=== PATIENT | male | born 1975 | race Caucasian/White ===

== ENCOUNTER 2017-04-05 22:00 | Emergency (ER) | payer MEDICAID ==
[~2017-04-05] VITALS: Ht 170.2 cm; Wt 113.6 kg
[~2017-04-05 22:00] MED LIST: BENZ1TAB10 PO; DIVA500T52 PO; METF500T4 PO; OLAN5TAB2 PO; RISP3 PO
[2017-04-05] MEDS ORDERED: AMLO-511 PO (22:10)
[2017-04-05 22:17] LABS: GLUCOSE,POINT OF CARE 95 MG/DL (70-110)
[2017-04-05 22:29] LABS: BASOPHILS % (AUTO) 0.5 % (0.0-2.0); EOSINOPHILS % (AUTO) 0.8 % (1.0-6.0); HEMATOCRIT 39.7 % (41-53); LYMPHOCYTES # (AUTO) 3.5 K/uL (1.0-4.8); LYMPHOCYTES % (AUTO) 36.4 % (22.0-44.0); MEAN CORPUSCULAR HEMOGLOBIN 33.7 pg (26.0-34.0); MEAN CORPUSCULAR HGB CONC 35.3 G/dL (31.0-37.0); MEAN CORPUSCULAR VOLUME 96 fL (80-100); MONOCYTES # (AUTO) 0.4 K/uL (0.1-1.0); MONOCYTES % (AUTO) 4.6 % (2.0-9.0); NEUTROPHILS # (AUTO) 5.6 K/uL (1.8-7.7); NEUTROPHILS % (AUTO) 57.7 % (40.0-70.0); PLATELET COUNT (AUTO) 298 K/uL (150-450); RED BLOOD CELL COUNT(AUTO) 4.15 MIL/uL (4.50-5.90); RED CELL DISTRIBUTION WIDTH 13.4 % (11.5-14.5); WHITE BLOOD COUNT (AUTO) 9.6 K/uL (4.5-11.0)
[2017-04-05 22:40] LABS: ANION GAP 8 mmol/L (8-16); CALCIUM, TOTAL 8.7 mg/dL (8.8-10.5); CARBON DIOXIDE 23 mmol/L (22-29); CHLORIDE 106 mmol/L (98-107); CREATININE 0.74 mg/dL (0.60-1.30); GLOMERULAR FILTR. RATE CALC > 60 mL/min (>60); POTASSIUM 3.5 mmol/L (3.5-5.1); SODIUM SERUM 137 mmol/L (136-145); UREA NITROGEN, BLOOD 6 mg/dL (7-18)
[2017-04-05 22:46] LABS: ALANINE AMINOTRANSFERASE 29 U/L (12-78); ALBUMIN 3.7 g/dL (3.4-5.0); ASPARTATE AMINOTRANSFERASE 18 U/L (15-37); BILIRUBIN,TOTAL 0.4 mg/dL (0.1-1.0); TOTAL PROTEIN, SERUM 6.8 g/dL (6.4-8.2)
[2017-04-05] MEDS ORDERED: LORazepam 2 MG TABLET PO ONE (23:00)
[2017-04-05] MEDS ORDERED: HALOPERIDOL 5 MG TABLET PO ONE (23:00)
[2017-04-05 23:20] VITALS: BP 132/85
== END 2017-04-05 23:23 | disposition home or self-care (01) ==
LOC: EMS 22:02
DX: R45.851 Suicidal ideations (principal); R44.0 Auditory hallucinations; E11.9 Type 2 diabetes mellitus without complications; F17.210 Nicotine dependence, cigarettes, uncomplicated; F20.9 Schizophrenia, unspecified; I10 Essential (primary) hypertension; K21.9 Gastro-esophageal reflux disease without esophagitis; F15.10 Other stimulant abuse, uncomplicated
CPT/HCPCS: 36415; 80053; 80307; 82962; 85025; 99285; 99406; G0480

== ENCOUNTER 2017-07-02 09:31 | Emergency (ER) | payer MEDICAID ==
[~2017-07-02] VITALS: Ht 170.2 cm; Wt 90.9 kg
[~2017-07-02 09:31] MED LIST changes: +AMLO-511 PO
[2017-07-02 09:42] LABS: GLUCOSE,POINT OF CARE 162 MG/DL (70-110)
[2017-07-02 10:27] LABS: BASOPHILS # (AUTO) 0.02 K/uL (0.00-0.20); BASOPHILS % (AUTO) 0.2 % (0.0-2.0); EOSINOPHILS # (AUTO) 0.07 K/uL (0.00-0.70); EOSINOPHILS % (AUTO) 0.77 % (1.0-6.0); HEMATOCRIT 40.6 % (41-53); HEMOGLOBIN 14.1 g/dL (13.5-17.5); LYMPHOCYTES # (AUTO) 2.9 K/uL (1.0-4.8); LYMPHOCYTES % (AUTO) 31.2 % (22.0-44.0); MEAN CORPUSCULAR HEMOGLOBIN 33.8 pg (26.0-34.0); MEAN CORPUSCULAR HGB CONC 34.6 G/dL (31.0-37.0); MEAN CORPUSCULAR VOLUME 98 fL (80-100); MONOCYTES # (AUTO) 0.5 K/uL (0.1-1.0); MONOCYTES % (AUTO) 5.6 % (2.0-9.0); NEUTROPHILS # (AUTO) 5.8 K/uL (1.8-7.7); NEUTROPHILS % (AUTO) 62.3 % (40.0-70.0); PLATELET COUNT (AUTO) 206 K/uL (150-450); RED BLOOD CELL COUNT(AUTO) 4.16 MIL/uL (4.50-5.90); RED CELL DISTRIBUTION WIDTH 12.5 % (11.5-14.5); WHITE BLOOD COUNT (AUTO) 9.3 K/uL (4.5-11.0)
[2017-07-02 10:38] LABS: ANION GAP 10 mmol/L (8-16); CALCIUM, TOTAL 8.3 mg/dL (8.8-10.5); CARBON DIOXIDE 23 mmol/L (22-29); CHLORIDE 98 mmol/L (98-107); CREATININE 0.72 mg/dL (0.60-1.30); GLOMERULAR FILTR. RATE CALC > 60 mL/min (>60); POTASSIUM 3.6 mmol/L (3.5-5.1); SODIUM SERUM 131 mmol/L (136-145); UREA NITROGEN, BLOOD 7 mg/dL (7-18)
[2017-07-02 10:44] LABS: ALANINE AMINOTRANSFERASE 22 U/L (12-78); ALBUMIN 3.5 g/dL (3.4-5.0); ASPARTATE AMINOTRANSFERASE 16 U/L (15-37); BILIRUBIN,TOTAL 0.4 mg/dL (0.1-1.0); TOTAL PROTEIN, SERUM 6.9 g/dL (6.4-8.2)
[2017-07-02] MEDS ORDERED: HALOPERIDOL 5 MG TABLET PO ONE (10:45)
[2017-07-02] MEDS ORDERED: LORazepam 1 MG TABLET PO ONE (10:45)
[2017-07-02 10:56] LABS: VALPROIC ACID 43 mcg/mL (50-100)
[2017-07-02 12:04] VITALS: BP 138/76
== END 2017-07-02 12:06 | disposition home or self-care (01) ==
LOC: EMS 09:33 → EEVIPCON 09:33 → EMS 12:06
DX: F20.0 Paranoid schizophrenia (principal); E11.9 Type 2 diabetes mellitus without complications; I10 Essential (primary) hypertension; K21.9 Gastro-esophageal reflux disease without esophagitis; F17.210 Nicotine dependence, cigarettes, uncomplicated; F19.90 Other psychoactive substance use, unspecified, uncomplicated; Z91.19 Patient's noncompliance with other medical treatment and regimen
CPT/HCPCS: 36415; 80053; 80164; 80307; 82962; 85025; 99284; G0480

== ENCOUNTER 2017-07-25 18:56 | Emergency (ER) | payer MEDICAID ==
[~2017-07-25] VITALS: Ht 177.8 cm; Wt 81.5 kg
[2017-07-25 19:13] LABS: GLUCOSE,POINT OF CARE 112 MG/DL (70-110)
[2017-07-25 19:37] LABS: BASOPHILS % (AUTO) 0.3 % (0.0-2.0); EOSINOPHILS % (AUTO) 1.3 % (1.0-6.0); HEMATOCRIT 41.2 % (41-53); HEMOGLOBIN 14.6 g/dL (13.5-17.5); LYMPHOCYTES # (AUTO) 4.5 K/uL (1.0-4.8); LYMPHOCYTES % (AUTO) 41.6 % (22.0-44.0); MEAN CORPUSCULAR HEMOGLOBIN 34.4 pg (26.0-34.0); MEAN CORPUSCULAR HGB CONC 35.4 G/dL (31.0-37.0); MEAN CORPUSCULAR VOLUME 97 fL (80-100); MONOCYTES # (AUTO) 0.6 K/uL (0.1-1.0); MONOCYTES % (AUTO) 5.1 % (2.0-9.0); NEUTROPHILS # (AUTO) 5.6 K/uL (1.8-7.7); NEUTROPHILS % (AUTO) 51.7 % (40.0-70.0); PLATELET COUNT (AUTO) 256 K/uL (150-450); RED BLOOD CELL COUNT(AUTO) 4.25 MIL/uL (4.50-5.90); RED CELL DISTRIBUTION WIDTH 12.8 % (11.5-14.5); WHITE BLOOD COUNT (AUTO) 10.8 K/uL (4.5-11.0)
[2017-07-25 19:45] VITALS: BP 122/74
[2017-07-25 19:55] LABS: ANION GAP 9 mmol/L (8-16); CALCIUM, TOTAL 8.9 mg/dL (8.8-10.5); CARBON DIOXIDE 26 mmol/L (22-29); CHLORIDE 101 mmol/L (98-107); CREATININE 0.69 mg/dL (0.60-1.30); GLOMERULAR FILTR. RATE CALC > 60 mL/min (>60); POTASSIUM 3.9 mmol/L (3.5-5.1); SODIUM SERUM 136 mmol/L (136-145); UREA NITROGEN, BLOOD 7 mg/dL (7-18)
[2017-07-25 20:01] LABS: ALANINE AMINOTRANSFERASE 26 U/L (12-78); ALBUMIN 3.8 g/dL (3.4-5.0); ASPARTATE AMINOTRANSFERASE 16 U/L (15-37); BILIRUBIN,TOTAL 0.3 mg/dL (0.1-1.0); TOTAL PROTEIN, SERUM 7.2 g/dL (6.4-8.2)
== END 2017-07-25 20:31 | disposition home or self-care (01) ==
LOC: EEVIPCON 18:59 → EMS 18:59
DX: F20.0 Paranoid schizophrenia (principal); I10 Essential (primary) hypertension; E11.9 Type 2 diabetes mellitus without complications; R79.9 Abnormal finding of blood chemistry, unspecified; F17.210 Nicotine dependence, cigarettes, uncomplicated; K21.9 Gastro-esophageal reflux disease without esophagitis; F19.90 Other psychoactive substance use, unspecified, uncomplicated; Z91.14 Patient's other noncompliance with medication regimen
CPT/HCPCS: 36415; 80053; 82962; 85025; 99284; 99406; G0480

== ENCOUNTER 2017-12-31 21:28 | Emergency (ER) | payer MEDICAID ==
[~2017-12-31] VITALS: Ht 170.2 cm; Wt 91.4 kg
[~2017-12-31 21:28] MED LIST changes: -METF500T4 PO
[2017-12-31] MEDS ORDERED: PALI156D IM (21:35)
[2017-12-31 21:42] LABS: GLUCOSE,POINT OF CARE 100 MG/DL (70-110)
[2017-12-31 23:21] VITALS: BP 125/75
== END 2017-12-31 23:23 | disposition home or self-care (01) ==
LOC: EMS 21:30
DX: R20.2 Paresthesia of skin (principal); E11.9 Type 2 diabetes mellitus without complications; K21.9 Gastro-esophageal reflux disease without esophagitis; I10 Essential (primary) hypertension; F17.210 Nicotine dependence, cigarettes, uncomplicated; F19.90 Other psychoactive substance use, unspecified, uncomplicated
CPT/HCPCS: 82962; 99283

== ENCOUNTER 2018-05-03 18:00 | Emergency (ER) | payer MEDICAID ==
[~2018-05-03] VITALS: Ht 170.2 cm; Wt 100.0 kg
[~2018-05-03 18:00] MED LIST changes: +PALI156D IM; -RISP3 PO
[2018-05-03 18:57] LABS: APPEARANCE,URINE CLEAR (CLEAR); BILIRUBIN,URINE NEGATIVE (NEGATIVE); GLUCOSE, URINE (UA) NEGATIVE (NEGATIVE); KETONES,URINE NEGATIVE (NEGATIVE); LEUKOCYTE ESTERASE ,URINE NEGATIVE (NEGATIVE); NITRATE,URINE NEGATIVE (NEGATIVE); OCCULT BLOOD,URINE NEGATIVE (NEGATIVE); PROTEIN,URINE NEGATIVE (NEGATIVE); UROBILINOGEN,URINE 0.2 mg/dL (<=1.0)
[2018-05-03] MEDS ORDERED: CEPHALEXIN MONOHYDRATE 500 MG CAPSULE PO ONE (19:15)
[2018-05-03] MEDS ORDERED: ACETAMINOPHEN 325 MG TABLET PO ONE (19:15)
[2018-05-03 19:31] VITALS: BP 131/85
[2018-05-03] MEDS ORDERED: BACITRACIN 0.9 GM PACKET OINTMENT TP SCH (21:00)
== END 2018-05-03 19:32 | disposition home or self-care (01) ==
LOC: EMS 18:01
DX: N48.89 Other specified disorders of penis (principal); N48.1 Balanitis; F25.9 Schizoaffective disorder, unspecified; F17.210 Nicotine dependence, cigarettes, uncomplicated; E11.9 Type 2 diabetes mellitus without complications; K21.9 Gastro-esophageal reflux disease without esophagitis; I10 Essential (primary) hypertension
CPT/HCPCS: 99284; 99406

== ENCOUNTER 2020-06-19 20:56 | Emergency (ER) | payer MEDICAID ==
[~2020-06-19] VITALS: Ht 172.7 cm; Wt 90.9 kg
[~2020-06-19 20:56] MED LIST changes: +AMLO-257 PO; -AMLO-511 PO; +DIVA-80 PO; -DIVA500T52 PO
[2020-06-19 22:02] LABS: BASOPHILS % (AUTO) 0.4 % (0.0-2.0); EOSINOPHILS % (AUTO) 1.1 % (1.0-6.0); HEMATOCRIT 41.7 % (41-53); HEMOGLOBIN 14.4 g/dL (13.5-17.5); LYMPHOCYTES # (AUTO) 4.1 K/uL (1.0-4.8); LYMPHOCYTES % (AUTO) 32.6 % (22.0-44.0); MEAN CORPUSCULAR HEMOGLOBIN 33.5 pg (26.0-34.0); MEAN CORPUSCULAR HGB CONC 34.5 G/dL (31.0-37.0); MEAN CORPUSCULAR VOLUME 97 fL (80-100); MONOCYTES # (AUTO) 0.9 K/uL (0.1-1.0); MONOCYTES % (AUTO) 7.6 % (2.0-9.0); NEUTROPHILS # (AUTO) 7.2 K/uL (1.8-7.7); NEUTROPHILS % (AUTO) 58.3 % (40.0-70.0); PLATELET COUNT (AUTO) 264 K/uL (150-450); RED BLOOD CELL COUNT(AUTO) 4.29 MIL/uL (4.50-5.90)
[2020-06-19 22:14] LABS: GLUCOSE,POINT OF CARE 93 MG/DL (70-110)
[2020-06-19 22:14] LABS: ANION GAP 8 mmol/L (8-16); CALCIUM, TOTAL 9.1 mg/dL (8.8-10.5); CARBON DIOXIDE 26 mmol/L (22-29); CHLORIDE 97 mmol/L (98-107); CREATININE 0.89 mg/dL (0.60-1.30); GLOMERULAR FILTR. RATE CALC > 60 mL/min (>60); GLUCOSE,RANDOM 102 mg/dL (70-110); POTASSIUM 3.4 mmol/L (3.5-5.1); SODIUM SERUM 131 mmol/L (136-145); UREA NITROGEN, BLOOD 6 mg/dL (7-18)
[2020-06-19 22:22] LABS: ALANINE AMINOTRANSFERASE 27 U/L (12-78); ALBUMIN 3.9 g/dL (3.4-5.0); ALKALINE PHOSPHATASE 70 U/L (46-116); ASPARTATE AMINOTRANSFERASE 18 U/L (15-37); BILIRUBIN,TOTAL 0.5 mg/dL (0.1-1.0); TOTAL PROTEIN, SERUM 7.2 g/dL (6.4-8.2); VALPROIC ACID 29 mcg/mL (50-100)
[2020-06-19 23:03] VITALS: BP 133/84
[2020-06-19] MEDS ORDERED: LORazepam 2 MG TABLET PO ONE (23:15)
== END 2020-06-19 23:32 | disposition home or self-care (01) ==
LOC: EMS 20:56
DX: F20.9 Schizophrenia, unspecified (principal); E11.9 Type 2 diabetes mellitus without complications; K21.9 Gastro-esophageal reflux disease without esophagitis; I10 Essential (primary) hypertension; F17.210 Nicotine dependence, cigarettes, uncomplicated; F19.90 Other psychoactive substance use, unspecified, uncomplicated
CPT/HCPCS: 36415; 80053; 80164; 82962; 85025; 99283; G0480

== ENCOUNTER 2021-01-06 20:00 | Emergency (ER) | payer MEDICAID ==
[~2021-01-06] VITALS: Ht 172.7 cm; Wt 90.0 kg
[2021-01-06 20:28] VITALS: BP 149/100
== END 2021-01-06 21:38 | disposition left against medical advice (07) ==
LOC: EMS 20:00
DX: M79.602 Pain in left arm (principal); Z53.21 Procedure and treatment not carried out due to patient leaving prior to being seen by health care provider

== ENCOUNTER 2021-03-05 16:53 | Emergency (ER) | payer MEDICAID ==
[~2021-03-05] VITALS: Ht 177.8 cm; Wt 100.0 kg
[~2021-03-05 16:53] MED LIST changes: -OLAN5TAB2 PO; +OLAN5TAB52 PO
[2021-03-05] MEDS ORDERED: IBUPROFEN 800 MG TABLET PO ONE (18:00)
[2021-03-05 18:52] VITALS: BP 133/75
== END 2021-03-05 19:07 | disposition home or self-care (01) ==
LOC: EMS 16:53
DX: S93.401A Sprain of unspecified ligament of right ankle, initial encounter (principal); E11.9 Type 2 diabetes mellitus without complications; I10 Essential (primary) hypertension; F20.9 Schizophrenia, unspecified; F17.210 Nicotine dependence, cigarettes, uncomplicated; F15.90 Other stimulant use, unspecified, uncomplicated; X50.9XXA Other and unspecified overexertion or strenuous movements or postures, initial encounter; Y93.89 Activity, other specified; Y92.89 Other specified places as the place of occurrence of the external cause; Y99.8 Other external cause status
CPT/HCPCS: 99284; 73610-TC; 73630-TC; Z7502; Z7610

== ENCOUNTER 2021-04-14 16:51 | Inpatient (IN) | payer MEDICAID ==
[~2021-04-14] VITALS: Ht 167.6 cm; Wt 104.3 kg
[2021-04-14] MEDS ORDERED: OLANZapine 5 MG RAPDIS TABLET PO ONE (18:30)
[2021-04-14] MEDS ORDERED: LORazepam 1 MG TABLET PO ONE (18:30)
[2021-04-14 18:33] LABS: BASOPHILS % (AUTO) 0.7 % (0.0-2.0); EOSINOPHILS % (AUTO) 1.6 % (1.0-6.0); HEMATOCRIT 41.8 % (41-53); HEMOGLOBIN 14.5 g/dL (13.5-17.5); LYMPHOCYTES # (AUTO) 5.1 K/uL (1.0-4.8); LYMPHOCYTES % (AUTO) 41.2 % (22.0-44.0); MEAN CORPUSCULAR HGB CONC 34.6 G/dL (31.0-37.0); MEAN CORPUSCULAR VOLUME 96 fL (80-100); MONOCYTES # (AUTO) 0.8 K/uL (0.1-1.0); MONOCYTES % (AUTO) 6.6 % (2.0-9.0); NEUTROPHILS # (AUTO) 6.2 K/uL (1.8-7.7); NEUTROPHILS % (AUTO) 49.9 % (40.0-70.0); PLATELET COUNT (AUTO) 326 K/uL (150-450); RED BLOOD CELL COUNT(AUTO) 4.38 MIL/uL (4.50-5.90); RED CELL DISTRIBUTION WIDTH 12.6 % (11.5-14.5)
[2021-04-14 18:35] LABS: AMPHET/METH SCREEN,URINE NEGATIVE (NEGATIVE); BARBITURATE SCREEN, URINE NEGATIVE (NEGATIVE); BENZODIAZEPINES SCREEN,URINE NEGATIVE (NEGATIVE); CANNABINOID SCREEN,URINE NEGATIVE (NEGATIVE); COCAINE SCREEN,URINE NEGATIVE (NEGATIVE); METHADONE SCREEN, URINE NEGATIVE (NEGATIVE); OPIATE SCREEN,URINE NEGATIVE (NEGATIVE)
[2021-04-14 18:50] LABS: PHENCYCLIDINE SCREEN,URINE NEGATIVE (NEGATIVE)
[2021-04-14 18:52] LABS: ANION GAP 11 mmol/L (8-16); CALCIUM, TOTAL 8.4 mg/dL (8.8-10.5); CARBON DIOXIDE 27 mmol/L (22-29); CHLORIDE 100 mmol/L (98-107); CREATININE 0.73 mg/dL (0.60-1.30); GLOMERULAR FILTR. RATE CALC > 60 mL/min (>60); GLUCOSE,RANDOM 138 mg/dL (70-110); POTASSIUM 4.1 mmol/L (3.5-5.1); SODIUM SERUM 138 mmol/L (136-145); UREA NITROGEN, BLOOD 11 mg/dL (7-18)
[2021-04-14 18:59] LABS: ALANINE AMINOTRANSFERASE 80 U/L (12-78); ALBUMIN 3.7 g/dL (3.4-5.0); ALKALINE PHOSPHATASE 100 U/L (46-116); ASPARTATE AMINOTRANSFERASE 28 U/L (15-37); BILIRUBIN,TOTAL 0.2 mg/dL (0.1-1.0); VALPROIC ACID 51 mcg/mL (50-100)
[2021-04-14 19:17] LABS: COVID AG,FIA SOURCE NASOPHARYNGEAL
[2021-04-14] MEDS ORDERED: QUEtiapine FUMARATE 100 MG TABLET PO PRN (19:30)
[2021-04-14] MEDS ORDERED: LORazepam 2 MG TABLET PO PRN (19:30)
[2021-04-14] MEDS ORDERED: ZOLPIDEM TARTRATE 10 MG TABLET PO PRN ×2 (19:30→20:45)
[2021-04-14] MEDS ORDERED: OLANZapine 5 MG RAPDIS TABLET PO PRN (20:45)
[2021-04-14 21:15] VITALS: BP 127/77
[2021-04-15] MEDS ORDERED: ACETAMINOPHEN 325 MG TABLET PO PRN (07:00)
[2021-04-15] MEDS ORDERED: CloNIDine HCL 0.1 MG TABLET PO PRN (07:00)
[2021-04-15] MEDS ORDERED: LOPERAMIDE HCL 2 MG CAPSULE PO PRN (07:00)
[2021-04-15] MEDS ORDERED: PETROLATUM,WHITE 28 GM JELLY TP PRN (07:00)
[2021-04-15] MEDS ORDERED: DOCUSATE SODIUM 100 MG CAPSULE PO PRN (07:00)
[2021-04-15] MEDS ORDERED: ALBUTEROL SULFATE HFA 90 MCG/PUFF 8 GM INHALER IH PRN (07:00)
[2021-04-15] MEDS ORDERED: OMEPRAZOLE 20 MG CAPSULE PO PRN (07:00)
[2021-04-15] MEDS ORDERED: MAG HYDROX/AL HYDROX/SIMETH ES 30 ML SUSPENSION UDCUP PO PRN (07:00)
[2021-04-15] MEDS ORDERED: BACITRACIN 28 GM OINTMENT TP PRN (07:00)
[2021-04-15] MEDS ORDERED: BENZOCAINE/MENTHOL LOZENGE PO PRN (07:00)
[2021-04-15] MEDS ORDERED: IBUPROFEN 600 MG TABLET PO PRN (07:00)
[2021-04-15] MEDS ORDERED: MAGNESIUM HYDROXIDE SUSPENSION 30 ML UDCUP PO PRN (07:00)
[2021-04-15] MEDS ORDERED: ONDANSETRON HCL 4 MG TABLET PO PRN (07:00)
[2021-04-15 08:12] VITALS: BP 143/87
[2021-04-15] MEDS: LORazepam 2 MG TABLET PO PRN ×2 (08:42→17:59)
[2021-04-15] MEDS: AmLODIPine BESYLATE 5 MG TABLET PO SCH (08:42)
[2021-04-15] MEDS: NICOTINE 21 MG/24 HOUR PATCH TD PRN (11:01)
[2021-04-15 16:00] VITALS: BP 138/91
[2021-04-15] MEDS: DIVALPROEX SODIUM 500 MG DR TABLET PO SCH (16:01)
[2021-04-16 07:11] LABS: HEMATOCRIT 43.6 % (41-53); HEMOGLOBIN 14.9 g/dL (13.5-17.5); MEAN CORPUSCULAR HEMOGLOBIN 32.6 pg (26.0-34.0); MEAN CORPUSCULAR HGB CONC 34.2 G/dL (31.0-37.0); MEAN CORPUSCULAR VOLUME 95 fL (80-100); PLATELET COUNT (AUTO) 297 K/uL (150-450); RED BLOOD CELL COUNT(AUTO) 4.57 MIL/uL (4.50-5.90); RED CELL DISTRIBUTION WIDTH 12.8 % (11.5-14.5)
[2021-04-16 07:27] LABS: ANION GAP 10 mmol/L (8-16); CALCIUM, TOTAL 8.6 mg/dL (8.8-10.5); CARBON DIOXIDE 27 mmol/L (22-29); CHLORIDE 103 mmol/L (98-107); CREATININE 0.71 mg/dL (0.60-1.30); GLOMERULAR FILTR. RATE CALC > 60 mL/min (>60); GLUCOSE,RANDOM 168 mg/dL (70-110); PHOSPHORUS 4.2 mg/dL (2.5-4.9); POTASSIUM 4.6 mmol/L (3.5-5.1); SODIUM SERUM 140 mmol/L (136-145); UREA NITROGEN, BLOOD 15 mg/dL (7-18)
[2021-04-16] MEDS: AmLODIPine BESYLATE 5 MG TABLET PO SCH (08:05)
[2021-04-16] MEDS: DIVALPROEX SODIUM 500 MG DR TABLET PO SCH ×2 (08:05→16:02)
[2021-04-16 08:14] LABS: BAND NEUTROPHILS % (MANUAL) 1 % (0-5); LYMPHOCYTES % (MANUAL) 32 % (22-44); MONOCYTES % (MANUAL) 2 % (2-9); SEGMENTED NEUTROPHILS % 65 % (40-70)
[2021-04-16 08:15] VITALS: BP 154/97
[2021-04-16] MEDS: NICOTINE 21 MG/24 HOUR PATCH TD PRN (13:57)
[2021-04-16] MEDS: LORazepam 2 MG TABLET PO PRN (14:05)
[2021-04-16 16:00] VITALS: BP 121/76
[2021-04-17] MEDS: DIVALPROEX SODIUM 500 MG DR TABLET PO SCH (09:06)
[2021-04-17] MEDS: AmLODIPine BESYLATE 5 MG TABLET PO SCH (09:06)
[2021-04-17] MEDS: NICOTINE 21 MG/24 HOUR PATCH TD PRN (09:08)
[2021-04-17 10:09] VITALS: BP 147/86
[2021-04-17] MEDS ORDERED: PALI234D IM (11:51)
[2021-04-17] MEDS ORDERED: OLANZapine 7.5 MG TABLET PO SCH (21:00)
[2021-05-02] MEDS ORDERED: PALIPERIDONE PALMITATE 234 MG/1.5 ML SYRINGE IM SCH (09:00)
== END 2021-04-17 13:20 | disposition home or self-care (01) | DRG 750 ==
LOC: EMS 16:54 → 3EI 20:59
PROVIDERS: ADMIT Psychiatry & Neurology Psychiatry; ATTEND Psychiatry & Neurology Psychiatry
DX: F20.0 Paranoid schizophrenia (principal); R45.851 Suicidal ideations; E11.9 Type 2 diabetes mellitus without complications; D72.829 Elevated white blood cell count, unspecified; F19.10 Other psychoactive substance abuse, uncomplicated; F41.9 Anxiety disorder, unspecified; Z87.891 Personal history of nicotine dependence; I10 Essential (primary) hypertension; K21.9 Gastro-esophageal reflux disease without esophagitis; Z91.14 Patient's other noncompliance with medication regimen; Z88.8 Allergy status to other drugs, medicaments and biological substances; G47.00 Insomnia, unspecified; K59.00 Constipation, unspecified; Z72.0 Tobacco use
CPT/HCPCS: 80048; 80053; 80164; 83735; 84100; 85007; 85025; 85027; 99285; G0480

== ENCOUNTER 2021-05-02 09:15 | Emergency (ER) | payer MEDICAID ==
[~2021-05-02] VITALS: Ht 170.2 cm; Wt 100.0 kg
[~2021-05-02 09:15] MED LIST changes: -BENZ1TAB10 PO; -PALI156D IM; +PALI234D IM
[2021-05-02 11:19] VITALS: BP 141/82
== END 2021-05-02 11:34 | disposition home or self-care (01) ==
LOC: EMS 09:32
DX: F41.9 Anxiety disorder, unspecified (principal); F15.10 Other stimulant abuse, uncomplicated; F17.210 Nicotine dependence, cigarettes, uncomplicated; E11.9 Type 2 diabetes mellitus without complications; I10 Essential (primary) hypertension; F20.9 Schizophrenia, unspecified; F15.90 Other stimulant use, unspecified, uncomplicated; Z79.899 Other long term (current) drug therapy
CPT/HCPCS: 70360; 99283

== ENCOUNTER 2021-05-08 16:56 | Emergency (ER) | payer MEDICAID ==
[~2021-05-08] VITALS: Ht 170.2 cm; Wt 102.3 kg
[2021-05-08 17:17] VITALS: BP 128/98
== END 2021-05-08 19:03 | disposition left against medical advice (07) ==
LOC: EMS 17:07
DX: Z04.6 Encounter for general psychiatric examination, requested by authority (principal); Z53.21 Procedure and treatment not carried out due to patient leaving prior to being seen by health care provider

== ENCOUNTER 2021-05-13 11:22 | Emergency (ER) | payer MEDICAID ==
[~2021-05-13] VITALS: Ht 170.2 cm; Wt 103.6 kg
[2021-05-13 12:11] VITALS: BP 129/76
[2021-05-13 12:17] LABS: BASOPHILS % (AUTO) 0.4 % (0.0-2.0); EOSINOPHILS % (AUTO) 0.8 % (1.0-6.0); HEMATOCRIT 41.2 % (41-53); HEMOGLOBIN 14.1 g/dL (13.5-17.5); LYMPHOCYTES # (AUTO) 4.1 K/uL (1.0-4.8); LYMPHOCYTES % (AUTO) 38.2 % (22.0-44.0); MEAN CORPUSCULAR HEMOGLOBIN 32.6 pg (26.0-34.0); MEAN CORPUSCULAR HGB CONC 34.1 G/dL (31.0-37.0); MEAN CORPUSCULAR VOLUME 96 fL (80-100); MONOCYTES # (AUTO) 0.7 K/uL (0.1-1.0); MONOCYTES % (AUTO) 6.1 % (2.0-9.0); NEUTROPHILS # (AUTO) 5.8 K/uL (1.8-7.7); NEUTROPHILS % (AUTO) 54.5 % (40.0-70.0); PLATELET COUNT (AUTO) 319 K/uL (150-450); RED BLOOD CELL COUNT(AUTO) 4.31 MIL/uL (4.50-5.90)
[2021-05-13 12:23] LABS: ANION GAP 8 mmol/L (8-16); CALCIUM, TOTAL 8.7 mg/dL (8.8-10.5); CARBON DIOXIDE 27 mmol/L (22-29); CHLORIDE 102 mmol/L (98-107); CREATININE 0.79 mg/dL (0.60-1.30); GLOMERULAR FILTR. RATE CALC > 60 mL/min (>60); GLUCOSE,RANDOM 127 mg/dL (70-110); POTASSIUM 3.9 mmol/L (3.5-5.1); SODIUM SERUM 137 mmol/L (136-145); UREA NITROGEN, BLOOD 5 mg/dL (7-18)
[2021-05-13 12:29] LABS: ALANINE AMINOTRANSFERASE 36 U/L (12-78); ALBUMIN 3.6 g/dL (3.4-5.0); ALKALINE PHOSPHATASE 86 U/L (46-116); ASPARTATE AMINOTRANSFERASE 19 U/L (15-37); BILIRUBIN,TOTAL 0.3 mg/dL (0.1-1.0); TOTAL PROTEIN, SERUM 7.3 g/dL (6.4-8.2)
[2021-05-13] MEDS ORDERED: LORazepam 2 MG TABLET PO ONE (12:45)
[2021-05-13] MEDS ORDERED: AmLODIPine BESYLATE 5 MG TABLET PO ONE (12:45)
[2021-05-13] MEDS ORDERED: OLANZapine 5 MG TABLET PO ONE (12:45)
[2021-05-13] MEDS ORDERED: MetFORMIN HCL 500 MG TABLET PO ONE (12:45)
== END 2021-05-13 14:27 | disposition home or self-care (01) ==
LOC: EMS 11:24
DX: F20.0 Paranoid schizophrenia (principal); F15.10 Other stimulant abuse, uncomplicated; F41.9 Anxiety disorder, unspecified; I10 Essential (primary) hypertension; E11.9 Type 2 diabetes mellitus without complications; F32.9 Major depressive disorder, single episode, unspecified; K21.9 Gastro-esophageal reflux disease without esophagitis; Z79.899 Other long term (current) drug therapy; Z88.8 Allergy status to other drugs, medicaments and biological substances
CPT/HCPCS: 36415; 80053; 85025; 99284; G0480

== ENCOUNTER 2022-05-04 09:40 | Emergency (ER) | payer MEDICAID ==
[~2022-05-04] VITALS: Ht 167.6 cm; Wt 104.5 kg
[2022-05-04] MEDS ORDERED: METF-1211 PO (10:14)
[2022-05-04 10:44] LABS: BASOPHILS % (AUTO) 0.6 % (0.0-2.0); EOSINOPHILS % (AUTO) 1.5 % (1.0-6.0); HEMATOCRIT 38.3 % (41-53); HEMOGLOBIN 13.5 g/dL (13.5-17.5); LYMPHOCYTES # (AUTO) 3.7 K/uL (1.0-4.8); LYMPHOCYTES % (AUTO) 37.5 % (22.0-44.0); MEAN CORPUSCULAR HEMOGLOBIN 32.7 pg (26.0-34.0); MEAN CORPUSCULAR HGB CONC 35.2 G/dL (31.0-37.0); MEAN CORPUSCULAR VOLUME 93 fL (80-100); MONOCYTES # (AUTO) 0.7 K/uL (0.1-1.0); NEUTROPHILS # (AUTO) 5.2 K/uL (1.8-7.7); NEUTROPHILS % (AUTO) 53.4 % (40.0-70.0); PLATELET COUNT (AUTO) 309 K/uL (150-450); RED BLOOD CELL COUNT(AUTO) 4.13 MIL/uL (4.50-5.90); RED CELL DISTRIBUTION WIDTH 12.9 % (11.5-14.5)
[2022-05-04 10:57] LABS: PROTHROMBIN TIME 10.3 SEC (9.4-11.6)
[2022-05-04 11:00] LABS: ANION GAP 3 mmol/L (8-16); CALCIUM, TOTAL 8.2 mg/dL (8.8-10.5); CARBON DIOXIDE 28 mmol/L (22-29); CHLORIDE 94 mmol/L (98-107); CREATININE 0.64 mg/dL (0.60-1.30); GLOMERULAR FILTR. RATE CALC > 60 mL/min (>60); GLUCOSE,RANDOM 177 mg/dL (70-110); POTASSIUM 3.8 mmol/L (3.5-5.1); SODIUM SERUM 125 mmol/L (136-145); UREA NITROGEN, BLOOD 5 mg/dL (7-18)
[2022-05-04 11:22] LABS: ALANINE AMINOTRANSFERASE 28 U/L (12-78); ALBUMIN 3.4 g/dL (3.4-5.0); ALKALINE PHOSPHATASE 111 U/L (46-116); ASPARTATE AMINOTRANSFERASE 14 U/L (15-37); BILIRUBIN,TOTAL 0.2 mg/dL (0.1-1.0); TOTAL PROTEIN, SERUM 6.4 g/dL (6.4-8.2)
[2022-05-04 11:34] LABS: COVID AG,FIA SOURCE NASAL SWAB
[2022-05-04 11:56] LABS: APPEARANCE,URINE CLEAR (CLEAR); BILIRUBIN,URINE NEGATIVE (NEGATIVE); GLUCOSE, URINE (UA) NEGATIVE (NEGATIVE); KETONES,URINE NEGATIVE (NEGATIVE); LEUKOCYTE ESTERASE ,URINE NEGATIVE (NEGATIVE); NITRATE,URINE NEGATIVE (NEGATIVE); OCCULT BLOOD,URINE NEGATIVE (NEGATIVE); PH,URINE 6.5 (5.0-8.0); PROTEIN,URINE NEGATIVE (NEGATIVE); SPECIFIC GRAVITIY, URINE 1.006 (1.003-1.030); UROBILINOGEN,URINE <=1.0 mg/dL (<=1.0)
[2022-05-04] MEDS ORDERED: LISI5TAB21 PO (11:58)
[2022-05-04] MEDS ORDERED: LATA2.5D14 OU (11:58)
[2022-05-04] MEDS ORDERED: ATOR40TA71 PO (11:58)
[2022-05-04] MEDS ORDERED: SODIUM CHLORIDE 0.9% 1,000 ML IV ONE (12:00)
[2022-05-04 13:04] VITALS: BP 131/81
== END 2022-05-04 13:12 | disposition home or self-care (01) ==
LOC: EMS 10:28
DX: R53.1 Weakness (principal); E11.65 Type 2 diabetes mellitus with hyperglycemia; F32.A Depression, unspecified; I10 Essential (primary) hypertension; F20.9 Schizophrenia, unspecified; F17.210 Nicotine dependence, cigarettes, uncomplicated; F15.90 Other stimulant use, unspecified, uncomplicated; Z20.822 Contact with and (suspected) exposure to COVID-19; Z88.8 Allergy status to other drugs, medicaments and biological substances
CPT/HCPCS: 99285; 96360; 71045; 87426; 80053; 81003; 84484; 85025; 85610; 85730; 36415; 93005; J7030

== ENCOUNTER 2024-09-17 11:27 | Emergency (ER) | payer MEDICAID ==
[~2024-09-17] VITALS: Ht 172.7 cm; Wt 98.0 kg
[~2024-09-17 11:27] MED LIST changes: +ATOR40TA71 PO; +DIVA-153 PO; -DIVA-80 PO; +LATA2.5D14 OU; +LISI5TAB21 PO; +METF-1211 PO
[2024-09-17 11:43] VITALS: BP 122/62; PULSE 98; RESP 16; TEMP 98.3; O2SAT 98
== END 2024-09-17 13:44 | disposition home or self-care (01) ==
LOC: EMS 11:27
DX: S05.02XA Injury of conjunctiva and corneal abrasion without foreign body, left eye, initial encounter (principal); H11.32 Conjunctival hemorrhage, left eye; E11.9 Type 2 diabetes mellitus without complications; I10 Essential (primary) hypertension; K21.9 Gastro-esophageal reflux disease without esophagitis; F20.9 Schizophrenia, unspecified; F17.210 Nicotine dependence, cigarettes, uncomplicated; Z88.8 Allergy status to other drugs, medicaments and biological substances; Z79.899 Other long term (current) drug therapy; X58.XXXA Exposure to other specified factors, initial encounter; Y93.89 Activity, other specified; Y92.89 Other specified places as the place of occurrence of the external cause; Y99.8 Other external cause status
CPT/HCPCS: 82962; 99282; Z7502

== ENCOUNTER 2024-10-30 01:26 | Inpatient (IN) | payer MEDICAID ==
[~2024-10-30] VITALS: Ht 170.2 cm; Wt 102.5 kg
[~2024-10-30 01:26] MED LIST changes: -LISI5TAB21 PO
[2024-10-30] MEDS ORDERED: HALOPERIDOL 5 MG TABLET PO PRN (02:00)
[2024-10-30] MEDS ORDERED: LORazepam 2 MG TABLET PO PRN (02:00)
[2024-10-30 04:28] VITALS: BP 133/70; PULSE 83; RESP 18; TEMP 98.2; O2SAT 96
[2024-10-30] MEDS ORDERED: LOPERAMIDE HCL 2 MG CAPSULE PO PRN (05:30)
[2024-10-30] MEDS ORDERED: NICOTINE 14 MG/24 HOUR PATCH TD PRN (05:30)
[2024-10-30] MEDS ORDERED: DOCUSATE SODIUM 100 MG CAPSULE PO PRN (05:30)
[2024-10-30] MEDS ORDERED: CloNIDine HCL 0.1 MG TABLET PO PRN (05:30)
[2024-10-30] MEDS ORDERED: MAG HYDROX/ALUMINUM HYD/SIMETH ES 30 ML SUSPENSION UDCUP PO PRN (05:30)
[2024-10-30] MEDS ORDERED: ONDANSETRON 4 MG TABLET PO PRN (05:30)
[2024-10-30] MEDS ORDERED: PETROLATUM,WHITE 28 GM JELLY TP PRN (05:30)
[2024-10-30] MEDS ORDERED: GuaiFENesin/D-METHORPHAN [SUGAR-FREE] 200-20MG/10 ML SYRUP UDCUP PO PRN (05:30)
[2024-10-30] MEDS ORDERED: MAGNESIUM HYDROXIDE SUSPENSION 30 ML UDCUP PO PRN (05:30)
[2024-10-30] MEDS ORDERED: PNEUMOCOCCAL VACCINE POLYVALENT 0.5 ML SYRINGE [PPSV23] IM. ONE (06:30)
[2024-10-30] MEDS ORDERED: INFLUENZA VIRUS VACCINE TVS (6MO+) 2024-25/PF 45 MCG/0.5 ML SYRINGE IM. ONE (06:30)
[2024-10-30] MEDS: MetFORMIN HCL 500 MG TABLET PO SCH (06:41)
[2024-10-30 08:00] VITALS: BP 114/59; PULSE 89; RESP 18; TEMP 98.1; O2SAT 97
[2024-10-30 08:15] LABS: BASOPHILS % (AUTO) 0.4 % (0.0-2.0); EOSINOPHILS % (AUTO) 1.7 % (1.0-6.0); HEMATOCRIT 48.1 % (41-53); HEMOGLOBIN 16.3 g/dL (13.5-17.5); LYMPHOCYTES # (AUTO) 2.5 K/uL (1.0-4.8); LYMPHOCYTES % (AUTO) 28.8 % (22.0-44.0); MEAN CORPUSCULAR HEMOGLOBIN 32.9 pg (26.0-34.0); MEAN CORPUSCULAR HGB CONC 33.8 G/dL (31.0-37.0); MEAN CORPUSCULAR VOLUME 97 fL (80-100); MONOCYTES # (AUTO) 0.8 K/uL (0.1-1.0); MONOCYTES % (AUTO) 9.8 % (2.0-9.0); NEUTROPHILS # (AUTO) 5.1 K/uL (1.8-7.7); NEUTROPHILS % (AUTO) 59.3 % (40.0-70.0); PLATELET COUNT (AUTO) 156 K/uL (150-450); RED BLOOD CELL COUNT(AUTO) 4.95 MIL/uL (4.50-5.90); WHITE BLOOD COUNT (AUTO) 8.6 K/uL (4.5-11.0)
[2024-10-30 08:33] LABS: HEMOGLOBIN A1C 7.4 % (3.8-5.6)
[2024-10-30 08:48] LABS: ALANINE AMINOTRANSFERASE 44 U/L (12-78); ALBUMIN 3.2 g/dL (3.4-5.0); ALKALINE PHOSPHATASE 110 U/L (46-116); ANION GAP 6 mmol/L (8-16); ASPARTATE AMINOTRANSFERASE 25 U/L (15-37); BILIRUBIN,TOTAL 0.4 mg/dL (0.1-1.0); CALCIUM, TOTAL 8.9 mg/dL (8.8-10.5); CARBON DIOXIDE 31 mmol/L (22-29); CHLORIDE 101 mmol/L (98-107); CHOL/HDL RATIO 3.1 (4.2-7.3); CHOLESTEROL 147 mg/dL (131-200); CREATININE 0.66 mg/dL (0.60-1.30); FREE T4 (FREE THYROXINE) 1.01 ng/dL (0.76-1.46); GLOMERULAR FILTR. RATE CALC > 60 mL/min (>60); GLUCOSE,RANDOM 131 mg/dL (70-110); HDL CHOLESTEROL 48 mg/dL (40-60); LDL CHOL (CALC.) 69 mg/dL (0-130); POTASSIUM 4.1 mmol/L (3.5-5.1); SODIUM SERUM 138 mmol/L (136-145); T4 (THYROXINE) 6.7 mcg/dL (4.7-13.3); TOTAL PROTEIN, SERUM 6.8 g/dL (6.4-8.2); TRIGLYCERIDES 148 mg/dL (15-150); UREA NITROGEN, BLOOD 9 mg/dL (7-18)
[2024-10-30] MEDS ORDERED: AmLODIPine BESYLATE 5 MG TABLET PO SCH (09:00)
[2024-10-30] MEDS ORDERED: ATORVASTATIN CALCIUM 40 MG TABLET PO SCH (09:00)
[2024-10-30] MEDS: ATORVASTATIN CALCIUM 40 MG TABLET PO SCH (10:12)
[2024-10-30] MEDS: AmLODIPine BESYLATE 5 MG TABLET PO SCH (10:12)
[2024-10-30] MEDS: OLANZapine 10 MG TABLET PO SCH (11:17)
[2024-10-30] MEDS: CITALOPRAM HYDROBROMIDE 10 MG TABLET PO SCH (11:17)
[2024-10-30] MEDS: DIVALPROEX SODIUM 500 MG ER TABLET PO SCH (11:18)
[2024-10-30] MEDS ORDERED: MetFORMIN HCL 500 MG TABLET PO SCH (17:00)
[2024-10-30] MEDS: LATANOPROST 0.005% 2.5 ML OPHTHALMIC SOLUTION OU SCH (20:16)
[2024-10-30 21:20] VITALS: RESP 18
[2024-10-30] MEDS: IBUPROFEN 400 MG TABLET PO PRN (21:20)
[2024-10-30 21:30] VITALS: BP 138/80; PULSE 91; RESP 16; TEMP 98.4; O2SAT 95
[2024-10-30 21:50] LABS: GLUCOMETER DEV NAME(LOC) BV2S.; GLUCOSE,POINT OF CARE 151 MG/DL (70-110)
[2024-10-30 22:20] VITALS: RESP 16
[2024-10-31] MEDS: ACETAMINOPHEN 325 MG TABLET PO PRN (06:35)
[2024-10-31 08:28] LABS: HEMOGLOBIN A1C 7.4 % (3.8-5.6)
[2024-10-31 08:38] LABS: APPEARANCE,URINE HAZY (CLEAR); BILIRUBIN,URINE NEGATIVE (NEGATIVE); COLOR,URINE YELLOW (YELLOW); GLUCOSE, URINE (UA) >=1000 mg/dL (NEGATIVE); KETONES,URINE NEGATIVE (NEGATIVE); LEUKOCYTE ESTERASE ,URINE NEGATIVE (NEGATIVE); NITRATE,URINE NEGATIVE (NEGATIVE); OCCULT BLOOD,URINE NEGATIVE (NEGATIVE); PROTEIN,URINE TRACE mg/dL (NEGATIVE); SPECIFIC GRAVITIY, URINE 1.019 (1.003-1.030); UROBILINOGEN,URINE <=1.0 mg/dL (<=1.0)
[2024-10-31 08:39] LABS: CHOL/HDL RATIO 3.5 (4.2-7.3); THYROID STIMULATING HORMONE 0.97 uIU/mL (0.36-3.74)
[2024-10-31 08:55] LABS: ALCOHOL, URINE DRUG SCREEN NEGATIVE (NEGATIVE); AMPHET/METH SCREEN,URINE NEGATIVE (NEGATIVE); BARBITURATE SCREEN, URINE NEGATIVE (NEGATIVE); BENZODIAZEPINES SCREEN,URINE NEGATIVE (NEGATIVE); CANNABINOID SCREEN,URINE NEGATIVE (NEGATIVE); COCAINE SCREEN,URINE NEGATIVE (NEGATIVE); METHADONE SCREEN, URINE NEGATIVE (NEGATIVE); OPIATE SCREEN,URINE NEGATIVE (NEGATIVE); PHENCYCLIDINE SCREEN,URINE NEGATIVE (NEGATIVE)
[2024-10-31 09:04] LABS: BACTERIA,URINE None Seen /HPF (None Seen); RBC,URINE None Seen /HPF (0-2); WBC,URINE None Seen /HPF (0-5)
[2024-10-31 09:31] VITALS: BP 130/72; PULSE 99; RESP 16; TEMP 98.5; O2SAT 95
[2024-10-31] MEDS: ALBUTEROL SULFATE HFA 90 MCG/PUFF 8 GM INHALER IH PRN (09:45)
[2024-10-31 20:05] VITALS: BP 146/80; PULSE 86; RESP 17; TEMP 98.7
[2024-10-31] MEDS: ZOLPIDEM TARTRATE 10 MG TABLET PO PRN (20:31)
[2024-11-01 08:24] VITALS: BP 137/79; PULSE 85; RESP 18; TEMP 97.4; O2SAT 95
[2024-11-01 20:20] VITALS: BP 111/72; PULSE 87; RESP 18; TEMP 98.3; O2SAT 96
[2024-11-02 09:01] VITALS: BP 141/83; PULSE 78; RESP 14; TEMP 97.6; O2SAT 98
[2024-11-02 20:14] VITALS: BP 134/79; PULSE 80; RESP 17; TEMP 98.6; O2SAT 96
[2024-11-03 08:44] VITALS: BP 127/87; PULSE 87; RESP 17; TEMP 97.6; O2SAT 94
[2024-11-03] MEDS ORDERED: OLAN10TA74 PO ×2 (13:59→21:53)
[2024-11-03] MEDS ORDERED: CITA10TA99 PO ×2 (14:00→21:53)
[2024-11-03] MEDS ORDERED: AMLO-257 PO (21:53)
[2024-11-03] MEDS ORDERED: METF-1211 PO (21:53)
[2024-11-03] MEDS ORDERED: XALA2.5OS OU (21:53)
[2024-11-03] MEDS ORDERED: DIVA-153 PO (21:53)
[2024-11-03] MEDS ORDERED: ATOR40TA28 PO (21:53)
== END 2024-11-03 14:16 | DRG 750 ==
LOC: B2S 03:16
PROVIDERS: ADMIT Psychiatry & Neurology Psychiatry; ATTEND Psychiatry & Neurology Psychiatry
PROC: GZHZZZZ Group Psychotherapy (ICD-10-PCS; principal; 2024-10-30)
PROC: GZ52ZZZ Individual Psychotherapy, Cognitive (ICD-10-PCS; 2024-10-30)
DX: F25.1 Schizoaffective disorder, depressive type (principal); R45.851 Suicidal ideations; E11.9 Type 2 diabetes mellitus without complications; I10 Essential (primary) hypertension; K21.9 Gastro-esophageal reflux disease without esophagitis; E78.5 Hyperlipidemia, unspecified; G47.00 Insomnia, unspecified; Z79.899 Other long term (current) drug therapy
CPT/HCPCS: 80053; 80061; 80307; 81001; 82962; 83036; 84436; 84439; 84443; 85025

== ENCOUNTER 2024-11-12 10:08 | Inpatient (IN) | payer MEDICAID ==
[~2024-11-12] VITALS: Ht 165.1 cm; Wt 104.5 kg
[~2024-11-12 10:08] MED LIST changes: +ATOR40TA28 PO; +CITA10TA99 PO; +OLAN10TA74 PO; -OLAN5TAB52 PO; -PALI234D IM; +XALA2.5OS OU
[2024-11-12 10:41] LABS: COVID AG,FIA SOURCE NASAL SWAB
[2024-11-12] MEDS: ALBUTEROL SULFATE 2.5 MG/0.5 ML NEB SOLUTION NEB ONE (10:54)
[2024-11-12] MEDS: IPRATROPIUM BROMIDE 0.5 MG/2.5 ML NEB SOLUTION NEB ONE (10:55)
[2024-11-12] MEDS: ACETAMINOPHEN 500 MG TABLET PO ONE (10:56)
[2024-11-12 10:58] VITALS: PULSE 94; RESP 18; O2SAT 88; O2SAT 99
[2024-11-12 11:02] LABS: BASOPHILS % (AUTO) 0.3 % (0.0-2.0); EOSINOPHILS % (AUTO) 0.2 % (1.0-6.0); HEMATOCRIT 39.1 % (41-53); HEMOGLOBIN 13.4 g/dL (13.5-17.5); LYMPHOCYTES # (AUTO) 3.4 K/uL (1.0-4.8); LYMPHOCYTES % (AUTO) 15.8 % (22.0-44.0); MEAN CORPUSCULAR HEMOGLOBIN 32.7 pg (26.0-34.0); MEAN CORPUSCULAR HGB CONC 34.2 G/dL (31.0-37.0); MEAN CORPUSCULAR VOLUME 96 fL (80-100); MONOCYTES # (AUTO) 1.9 K/uL (0.1-1.0); MONOCYTES % (AUTO) 8.8 % (2.0-9.0); NEUTROPHILS % (AUTO) 74.9 % (40.0-70.0); PLATELET COUNT (AUTO) 357 K/uL (150-450); RED BLOOD CELL COUNT(AUTO) 4.09 MIL/uL (4.50-5.90); RED CELL DISTRIBUTION WIDTH 13.6 % (11.5-14.5); WHITE BLOOD COUNT (AUTO) 21.4 K/uL (4.5-11.0)
[2024-11-12 11:08] LABS: ANION GAP 8 mmol/L (8-16); CALCIUM, TOTAL 8.9 mg/dL (8.8-10.5); CARBON DIOXIDE 30 mmol/L (22-29); CHLORIDE 92 mmol/L (98-107); CREATININE 0.66 mg/dL (0.60-1.30); GLOMERULAR FILTR. RATE CALC > 60 mL/min (>60); GLUCOSE,RANDOM 163 mg/dL (70-110); SODIUM SERUM 130 mmol/L (136-145); UREA NITROGEN, BLOOD 4 mg/dL (7-18)
[2024-11-12 11:10] VITALS: PULSE 95; RESP 16; O2SAT 90
[2024-11-12 11:15] LABS: ALBUMIN 2.6 g/dL (3.4-5.0); BILIRUBIN,DIRECT 0.1 mg/dL (0.00-0.20); BILIRUBIN,TOTAL 0.3 mg/dL (0.1-1.0); TOTAL PROTEIN, SERUM 7.3 g/dL (6.4-8.2)
[2024-11-12 11:18] LABS: CREATINE KINASE, TOTAL ONLY 187 U/L (39-308); TROPONIN I-HIGH SENSITIVITY 4 ng/L (<76)
[2024-11-12 11:19] LABS: SARS-COV2 (COVID) ANTIGEN,FIA Negative (Negative)
[2024-11-12 11:20] LABS: INFLUENZA TYPE A NEGATIVE FOR TYPE A (NEGATIVE); INFLUENZA TYPE B NEGATIVE FOR TYPE B (NEGATIVE)
[2024-11-12 11:23] LABS: B-TYPE NATRIURETIC PEPTIDE 21 pg/mL (0-100)
[2024-11-12] MEDS: AZITHROMYCIN 500 MG/NS 250 ML IV ONE (11:26)
[2024-11-12] MEDS: CefTRIAXone 1 GM/DEXTROSE 50 ML IV ONE (11:26)
[2024-11-12] MEDS: MethylPREDNISolone SOD SUCC 125 MG/2 ML VIAL IVP ONE (11:33)
[2024-11-12] MEDS ORDERED: INSULIN LISPRO 100 UNITS/ML SQ PRN (12:00)
[2024-11-12] MEDS ORDERED: DEXTROSE 50%-WATER 25 GM/50 ML SYRINGE IVP PRN (12:00)
[2024-11-12] MEDS ORDERED: ACETAMINOPHEN 325 MG TABLET PO PRN (12:15)
[2024-11-12] MEDS ORDERED: ZOLPIDEM TARTRATE 5 MG TABLET PO PRN (12:15)
[2024-11-12] MEDS ORDERED: ALBUTEROL SULFATE 2.5 MG/0.5 ML NEB SOLUTION NEB PRN (12:15)
[2024-11-12 12:16] LABS: APPEARANCE,URINE CLEAR (CLEAR); BILIRUBIN,URINE NEGATIVE (NEGATIVE); COLOR,URINE COLORLESS (YELLOW); GLUCOSE, URINE (UA) >=1000 mg/dL (NEGATIVE); KETONES,URINE NEGATIVE (NEGATIVE); LEUKOCYTE ESTERASE ,URINE NEGATIVE (NEGATIVE); NITRATE,URINE NEGATIVE (NEGATIVE); OCCULT BLOOD,URINE NEGATIVE (NEGATIVE); PH,URINE 6.5 (5.0-8.0); PROTEIN,URINE NEGATIVE (NEGATIVE); SPECIFIC GRAVITIY, URINE 1.007 (1.003-1.030); UROBILINOGEN,URINE <=1.0 mg/dL (<=1.0)
[2024-11-12 12:22] LABS: ALCOHOL, URINE DRUG SCREEN NEGATIVE (NEGATIVE); AMPHET/METH SCREEN,URINE NEGATIVE (NEGATIVE); BARBITURATE SCREEN, URINE NEGATIVE (NEGATIVE); BENZODIAZEPINES SCREEN,URINE NEGATIVE (NEGATIVE); CANNABINOID SCREEN,URINE NEGATIVE (NEGATIVE); COCAINE SCREEN,URINE NEGATIVE (NEGATIVE); METHADONE SCREEN, URINE NEGATIVE (NEGATIVE); OPIATE SCREEN,URINE NEGATIVE (NEGATIVE); PHENCYCLIDINE SCREEN,URINE NEGATIVE (NEGATIVE)
[2024-11-12] MEDS: SODIUM CHLORIDE 0.9% 1,000 ML IV ONE (12:47)
[2024-11-12 12:50] LABS: PH,URINE DRUG SCREEN 6.5 (5.0-8.0)
[2024-11-12 12:56] LABS: BACTERIA,URINE None Seen /HPF (None Seen); RBC,URINE None Seen /HPF (0-2); SQUAMOUS EPITHELIAL CELL,UR Few /LPF (None Seen); WBC,URINE None Seen /HPF (0-5)
[2024-11-12 13:00] VITALS: BP 117/71; PULSE 85; RESP 19; TEMP 98; O2SAT 94
[2024-11-12] MEDS ORDERED: GuaiFENesin/D-METHORPHAN [SUGAR-FREE] 200-20MG/10 ML SYRUP UDCUP PO PRN (15:30)
[2024-11-12] MEDS ORDERED: NICOTINE 21 MG/24 HOUR PATCH TD PRN (15:30)
[2024-11-12 17:00] LABS: GLUCOMETER DEV NAME(LOC) 5N.1D; GLUCOSE,POINT OF CARE 127 MG/DL (70-110)
[2024-11-12] MEDS ORDERED: MethylPREDNISolone SOD SUCC 125 MG/2 ML VIAL IVP SCH (18:00)
[2024-11-12] MEDS ORDERED: DOCUSATE SODIUM 100 MG CAPSULE PO SCH (21:00)
[2024-11-13] MEDS ORDERED: FAMOTIDINE 20 MG TABLET PO SCH (09:00)
[2024-11-13] MEDS ORDERED: AZITHROMYCIN 500 MG/NS 250 ML IV SCH (10:00)
== END 2024-11-12 15:30 | disposition left against medical advice (07) | DRG 133 ==
LOC: EMS 10:08 → EDH 11:27 → 5S 12:35
PROVIDERS: ADMIT Internal Medicine; ATTEND Internal Medicine
DX: J96.01 Acute respiratory failure with hypoxia (principal); R65.10 Systemic inflammatory response syndrome (SIRS) of non-infectious origin without acute organ dysfunction; J44.1 Chronic obstructive pulmonary disease with (acute) exacerbation; J45.901 Unspecified asthma with (acute) exacerbation; F25.9 Schizoaffective disorder, unspecified; E11.9 Type 2 diabetes mellitus without complications; E66.01 Morbid (severe) obesity due to excess calories; I10 Essential (primary) hypertension; K21.9 Gastro-esophageal reflux disease without esophagitis; Z20.822 Contact with and (suspected) exposure to COVID-19; J43.9 Emphysema, unspecified; Z82.49 Family history of ischemic heart disease and other diseases of the circulatory system; Z83.3 Family history of diabetes mellitus; Z87.891 Personal history of nicotine dependence; Z91.148 Patient's other noncompliance with medication regimen for other reason; Z53.29 Procedure and treatment not carried out because of patient's decision for other reasons; Z88.8 Allergy status to other drugs, medicaments and biological substances
CPT/HCPCS: 71045; 80048; 80076; 80307; 81001; 82550; 82962; 83880; 84484; 85025; 87804; 93005; 94640; 99285; G0378; J0456; J0696; J2919; 36415-L1; 36415-TC; J7613

== ENCOUNTER 2025-08-15 18:18 | Emergency (ER) | payer MEDICAID ==
[~2025-08-15] VITALS: Ht 175.3 cm; Wt 86.4 kg
[~2025-08-15 18:18] MED LIST changes: -LATA2.5D14 OU; +LATA2.5D7 OU
[2025-08-15 18:52] VITALS: BP 148/93; PULSE 86; RESP 16; TEMP 97.9; O2SAT 100
[2025-08-15 19:56] LABS: COVID AG,FIA SOURCE NASAL SWAB
[2025-08-15 20:08] LABS: RAPID GROUP A STREP PRELIM. NEGATIVE (NEGATIVE)
[2025-08-15 20:14] LABS: INFLUENZA TYPE A NEGATIVE FOR TYPE A (NEGATIVE); INFLUENZA TYPE B NEGATIVE FOR TYPE B (NEGATIVE); SARS-COV2 (COVID) ANTIGEN,FIA Negative (Negative)
[2025-08-15] MEDS: ACETAMINOPHEN 500 MG TABLET PO ONE (20:25)
[2025-08-15] MEDS ORDERED: AMOX500C2 PO (20:39)
== END 2025-08-15 20:50 | disposition home or self-care (01) ==
LOC: EMS 18:18
DX: J02.9 Acute pharyngitis, unspecified (principal); E11.9 Type 2 diabetes mellitus without complications; F20.9 Schizophrenia, unspecified; F32.A Depression, unspecified; I10 Essential (primary) hypertension; R13.10 Dysphagia, unspecified; F17.210 Nicotine dependence, cigarettes, uncomplicated; F15.90 Other stimulant use, unspecified, uncomplicated; Z88.5 Allergy status to narcotic agent; Z79.899 Other long term (current) drug therapy; Z20.822 Contact with and (suspected) exposure to COVID-19
CPT/HCPCS: 87081; 87430; 87804; 99283

== ENCOUNTER 2025-08-27 14:52 | Emergency (ER) | payer MEDICAID ==
[~2025-08-27] VITALS: Ht 175.3 cm; Wt 86.0 kg
[~2025-08-27 14:52] MED LIST changes: +AMOX500C2 PO; -ATOR40TA71 PO; -LATA2.5D7 OU
[2025-08-27 15:03] VITALS: BP 148/78; PULSE 98; RESP 16; TEMP 98.8; O2SAT 97
[2025-08-27 15:27] LABS: COVID AG,FIA SOURCE NASAL SWAB
[2025-08-27 15:39] LABS: RAPID GROUP A STREP PRELIM. NEGATIVE (NEGATIVE)
[2025-08-27 15:47] LABS: SARS-COV2 (COVID) ANTIGEN,FIA Negative (Negative)
[2025-08-27 15:48] LABS: INFLUENZA TYPE A NEGATIVE FOR TYPE A (NEGATIVE); INFLUENZA TYPE B NEGATIVE FOR TYPE B (NEGATIVE)
[2025-08-27] MEDS: PB/HYOSCY/ATR/SCOP/LIDO/MAALOX 55 ML BOTTLE PO ONE (16:37)
== END 2025-08-27 21:32 | disposition home or self-care (01) ==
LOC: EMS 14:52
DX: J02.8 Acute pharyngitis due to other specified organisms (principal); B97.89 Other viral agents as the cause of diseases classified elsewhere; E11.9 Type 2 diabetes mellitus without complications; F15.90 Other stimulant use, unspecified, uncomplicated; F17.210 Nicotine dependence, cigarettes, uncomplicated; F20.9 Schizophrenia, unspecified; F32.A Depression, unspecified; I10 Essential (primary) hypertension; Z79.84 Long term (current) use of oral hypoglycemic drugs; Z79.899 Other long term (current) drug therapy; Z20.822 Contact with and (suspected) exposure to COVID-19
CPT/HCPCS: 99284; 87426; 82962; 87081; 87430; 87804; 70360; J8540

== ENCOUNTER 2025-09-06 19:33 | Emergency (ER) | payer MEDICAID ==
[~2025-09-06] VITALS: Ht 170.2 cm; Wt 100.0 kg
[2025-09-06 19:57] VITALS: TEMP 98.1
[2025-09-06] MEDS ORDERED: LIDO-57 TP (23:09)
[2025-09-06] MEDS ORDERED: METH-812 PO (23:09)
[2025-09-06] MEDS ORDERED: IBUP-1492 PO (23:09)
[2025-09-06] MEDS: LIDOCAINE 5% TRANSDERMAL PATCH TD ONE (23:15)
[2025-09-06] MEDS: KETOROLAC TROMETHAMINE 60 MG/2 ML VIAL IM ONE (23:15)
[2025-09-06 23:50] VITALS: BP 130/78; PULSE 86; RESP 16; O2SAT 94
== END 2025-09-07 00:10 | disposition home or self-care (01) ==
LOC: EMS 19:43
DX: M62.838 Other muscle spasm (principal); F32.A Depression, unspecified; E11.9 Type 2 diabetes mellitus without complications; F20.9 Schizophrenia, unspecified; I10 Essential (primary) hypertension; J43.9 Emphysema, unspecified; F17.210 Nicotine dependence, cigarettes, uncomplicated; F15.90 Other stimulant use, unspecified, uncomplicated; Z79.84 Long term (current) use of oral hypoglycemic drugs; Z79.899 Other long term (current) drug therapy
CPT/HCPCS: 99283; 82962; 96372; J1885